=== PATIENT | female | born 1990 | race Caucasian/White ===

== ENCOUNTER 2017-02-21 21:45 | Inpatient (IN) | payer OTHER ==
[2017-02-21] MEDS ORDERED: ELECTROLYTE-148 SOLN 1,000 ML IV SCH (22:00)
[2017-02-21 22:30] LABS: BASOPHIL 0.3 % (0-2.0); EOSINOPHIL 0.3 % (0-4.5); MCH 29.9 pg (25.7-33.7); MCHC 34.4 g/dl (32.0-36.0); MEAN CELL VOLUME 87.1 fl (80-96); MEAN PLT VOLUME 7.7 fl (7.5-11.1); NEUTROPHILS 70.2 % (42.8-82.8); PLATELET COUNT 301 K/MM3 (134-434); RDW 14.8 % (11.6-15.6); WHITE BLOOD COUNT 9.1 K/mm3 (4.0-10.0)
[2017-02-21 22:43] LABS: INR 0.9 (0.82-1.09); PROTHROMBIN TIME (PATIENT) 9.9 SEC (9.98-11.88)
[2017-02-21 22:44] VITALS: BMI 27.9
[2017-02-21 22:46] LABS: ACTIVATED PTT 26.5 SECONDS (26.9-34.4)
[2017-02-21 23:03] LABS: ANION GAP 14 (8-16); CALCIUM 8.9 mg/dL (8.5-10.1); CO2 18 mmol/L (21-32); CREATININE 0.5 mg/dL (0.55-1.02); GLUCOSE,RANDOM 89 mg/dL (74-106)
--- NOTE | 2017-02-21 23:11 | HP ---
Past Medical History - Primary Care Physician PCP:: Asiya Lisa - Admission Chief Complaint: 26 yrs , 40.1 weeks admitted in labor, onset LP since 5.00 PM History of Present Illness: pnc at , [facility],late registrant . transferred care from [facility] at [facility] work Up : o Pos, Rpr nr, Hbsag neg, Rubella pos, Rpr nr, Quantiferon neg, Hiv neg , Hgb electrophoresis AA, , pap (NILM - 08/21/16 ) , gc/ct neg ,GCT 109, GBS neg CF neg. quad screen neg. 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 Weeks Gestation by Dates: 40.1 ...EDC by Dates: 02/19/17 ...EDC by Sono: 02/19/17 Heme/Onc: No: Anemia Infectious Disease: Yes: Other (h/o HSV genitalis). No: AIDS, HIV, Tuberculosis Endocrine: No: Diabetes Mellitus, Hypothyroidism - Past Surgical History Past Surgical History: Yes: None Hx Myomectomy: No Hx Transabdominal Cerclage: No - Smoking History Smoking history: Never smoked Have you smoked in the past 12 months: No - Alcohol/Substance Use Hx Alcohol Use: No History of Substance Use: reports: None Home Medications - Allergies Allergies/Adverse Reactions: Allergies Allergy/AdvReac Type Severity Reaction Status Date / Time No Known Allergies Allergy Verified 02/21/17 22:24 - Home Medications Home Medications: Ambulatory Orders Ferrous Sulfate 325 mg PO DAILY 02/21/17 Vitamins (Sjr) - 1 tab PO DAILY 02/21/17 Valacyclovir HCl [Valtrex -] 500 mg PO DAILY 02/21/17 Physical Exam - Maternity Vital Signs: Vital Signs Temperature 98.6 F 02/21/17 22:35 Pulse Rate 80 02/21/17 22:35 Respiratory Rate 20 02/21/17 22:35 Blood Pressure 124/79 02/21/17 22:35 O2 Sat by Pulse Oximetry (%) Constitutional: Yes: Well Nourished, Severe Distress Eyes: Yes: WNL HENT: Yes: WNL, Normocephalic Neck: Yes: WNL, Supple Cardiovascular: Yes: WNL, Regular Rate and Rhythm Lungs: Clear to auscultation Breast(s): Yes: Other (nt examined) - Abdominal Exam/OB Fundal Height: 40 Number of Fetuses: Single Presentation: Vertex (exam at 22.50 hr) Contractions: Yes Regularity: Regular (2-3 min) Intensity: Strong Monitor Mode: External Heart Rate (range): 140-150 Heart Rate Location: [facility] Category: I Accelerations: Uniform Decelerations: None - Vaginal Exam/OB Vaginal Bleediing: Bloody Show Dilatation (cm): 7 Effacement (%): 80 Amniotic Membrane Status: Intact Presentation: Vertex/Position Station: -2 - Physical Exam Musculoskeletal: Yes: WNL Extremities: Yes: WNL. No: Calf Tenderness Edema: Yes Edema: LLE: 1+, RLE: 1+ ...Motor Strength: WNL Psychiatric: Yes: WNL, Alert, Oriented - Labs Lab Results: CBC, BMP 02/21/17 22:15 Laboratory Tests 02/21/17 02/21/17 22:15 22:15 INR 0.90 PTT (Actin FS) 26.5 L Sodium 138 Potassium 3.7 Chloride 106 Carbon Dioxide 18 L BUN 12 Creatinine 0.5 L Random Glucose 89 Calcium 8.9 Problem List - Problems (1) 40 weeks gestation of Code(s): Z3A.40 - 40 WEEKS GESTATION OF (2) Labor established Code(s): JSM6134 - Assessment/Plan 26 yrs , 40.1 weeks , in active labor,GBS neg , h/o po valtrex for prophylaxis of herpes infection plan : epidural labor analgesia trial vaginal delivery
[2017-02-21] MEDS ORDERED: FENTANYL/BUPIVACAINE/NS/PF - PCEA - 50 ML DISP.SYRIN EP SCH (23:45)
--- NOTE | 2017-02-22 00:25 | PN ---
Progress Note, Labor Vaginal Exam #1 Labor Exam Date: 02/22/17 Labor Exam Time: 00:15 Heart Rate (range): 130-140 Dilatation: 9 Effacement (%): 100 Amniotic Membrane Status: Ruptured (AROM clear) Presentation: Vertex/Position Station: 0 Remarks: UC 2-3 min FHR cat-1 epidural given at 11.30 PM 02/21/17 Selected Entries 02/21/17 02/21/17 02/22/17 23:05 23:30 00:00 Temperature 98.4 F 98.3 F Pulse Rate 75 110 H Blood Pressure 135/66 125/60 Blood Pressure 81 Mean Vaginal Exam #2 Labor Exam Date: 02/22/17 Labor Exam Time: 00:45 Heart Rate (range): 145 Dilatation: 10 Effacement (%): 100 Amniotic Membrane Status: Ruptured Presentation: Vertex/Position Station: +2 Remarks: fhr cat-1 UC q2 min pt was encouraged to push at 1.00am
[2017-02-22] MEDS: D5W-LR W/ 20 UNITS OXYTOCIN 1,000 ML IV SCH (01:38)
[2017-02-22] MEDS ORDERED: WITCH HAZEL 50% (TUCKS) 40 PAD/JAR PAD TP PRN (01:55)
[2017-02-22] MEDS ORDERED: BENZOCAINE 20% 57 GM BOTTLE TP PRN (01:55)
[2017-02-22] MEDS ORDERED: BENZOCAINE 28 GM HEMORRHOIDAL OINTMENT TP PRN (01:55)
[2017-02-22] MEDS ORDERED: METHYLERGONOVINE MALEATE 0.2 MG/1 ML AMP IM PRN (01:55)
[2017-02-22] MEDS ORDERED: oxyCODONE HCL 5 MG TABLET PO PRN (01:55)
[2017-02-22] MEDS ORDERED: BISACODYL 10 MG SUPP.RECT RC PRN (01:55)
--- NOTE | 2017-02-22 02:12 | PN ---
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 [facility] in [place], late transferred to [facility] Gbs neg Intrapartum course uneventful
[2017-02-22 02:13] LABS: ARTERIAL BLD GAS O2 SATURATION 16.2 % (90-98.9); ARTERIAL BLOOD GAS BASE EXCESS -2.8 meq/l (-2-2); ARTERIAL BLOOD GAS HCO3 23.2 meq/L (22-26); ARTERIAL BLOOD GAS PO2 14.6 mmHg (80-100)
[2017-02-22 02:14] LABS: LPM/O2% 21%; PT. ON O2? NO; TYPE OF O2 ROOM AIR
[2017-02-22 02:17] LABS: ARTERIAL BLOOD GAS pH 7.32 (7.35-7.45)
[2017-02-22 02:19] LABS: VENOUS BLOOD GAS HCO3 21.9 meq/L (19-25)
[2017-02-22 02:20] LABS: VENOUS PH 7.42 (7.32-7.42)
[2017-02-22] MEDS: IBUPROFEN 600 MG TABLET (FP) PO PRN ×2 (07:22→20:53)
[2017-02-22] MEDS: ACETAMINOPHEN 325 MG TABLET (FP) PO PRN ×2 (07:23→20:53)
[2017-02-22] MEDS: FERROUS SO4 325 MG TABLET (FP) PO SCH ×2 (08:00→17:18)
[2017-02-22] MEDS: PRENATAL VITAMINS W/ FOLIC ACID TABLET (FP) PO SCH (09:26)
[2017-02-23 06:50] LABS: BASOPHIL 0.5 % (0-2.0); EOSINOPHIL 1.8 % (0-4.5); MCH 29.5 pg (25.7-33.7); MCHC 33.6 g/dl (32.0-36.0); MEAN PLT VOLUME 7.3 fl (7.5-11.1); PLATELET COUNT 239 K/MM3 (134-434); WHITE BLOOD COUNT 7.8 K/mm3 (4.0-10.0)
[2017-02-23] MEDS: FERROUS SO4 325 MG TABLET (FP) PO SCH ×2 (09:17→17:11)
[2017-02-23] MEDS: PRENATAL VITAMINS W/ FOLIC ACID TABLET (FP) PO SCH (09:17)
[2017-02-23] MEDS: ACETAMINOPHEN 325 MG TABLET (FP) PO PRN ×2 (09:19→23:28)
[2017-02-23] MEDS: IBUPROFEN 600 MG TABLET (FP) PO PRN ×2 (09:20→23:27)
--- NOTE | 2017-02-23 09:31 | PN ---
Post Progress Note - Subjective Subjective: 26 yo Para 2, status post vaginal delivery, seen and evaluated. Doing well, no complaints. Post Day: 1 Type of Delivery: Vital Signs: Vital Signs Temperature 98.6 F 02/23/17 02:00 Pulse Rate 65 02/23/17 02:00 Respiratory Rate 18 02/23/17 02:00 Blood Pressure 104/70 02/23/17 02:00 O2 Sat by Pulse Oximetry (%) 100 02/22/17 02:45 Breast Exam: Yes: Soft Uterus: Yes: Fundus Firm Abdomen/GI: Yes: Abdomen soft, Tolerating PO Lochia: Yes: Rubra Lochia, amount: Moderate Extremities: Yes: Calves non-tender Perineum: Yes: Intact Activity: Ambulating - Labs Labs: CBC WBC 7.8 K/mm3 (4.0-10.0) 02/23/17 06:30 RBC 3.85 M/mm3 (3.60-5.2) 02/23/17 06:30 Hgb 11.4 GM/dL (10.7-15.3) D 02/23/17 06:30 Hct 33.8 % (32.4-45.2) 02/23/17 06:30 MCV 88.0 fl (80-96) 02/23/17 06:30 MCH 29.5 pg (25.7-33.7) 02/23/17 06:30 MCHC 33.6 g/dl (32.0-36.0) 02/23/17 06:30 RDW 15.0 % (11.6-15.6) 02/23/17 06:30 Plt Count 239 K/MM3 (134-434) D 02/23/17 06:30 MPV 7.3 fl (7.5-11.1) L 02/23/17 06:30 Neutrophils % 65.0 % (42.8-82.8) 02/23/17 06:30 Lymphocytes % 26.9 % (8-40) 02/23/17 06:30 Monocytes % 5.8 % (3.8-10.2) 02/23/17 06:30 Eosinophils % 1.8 % (0-4.5) D 02/23/17 06:30 Basophils % 0.5 % (0-2.0) 02/23/17 06:30 Assessment/Plan Status post vaginal delivery Stable Continue routine care
[2017-02-23] MEDS ORDERED: SENNOSIDES/DOCUSATE COMBO (SENNA PLUS) TABLET (UD) PO PRN (22:00)
[2017-02-24] MEDS: ACETAMINOPHEN 325 MG TABLET (FP) PO PRN ×2 (05:22→09:18)
[2017-02-24] MEDS: IBUPROFEN 600 MG TABLET (FP) PO PRN ×2 (05:23→09:17)
[2017-02-24] MEDS: FERROUS SO4 325 MG TABLET (FP) PO SCH (08:00)
--- NOTE | 2017-02-24 08:48 | PN ---
Progress Note (short form) - Note Progress Note: ppd 2 doing wel, no c/o ,voids ok CBC, BMP 02/23/17 06:30 02/21/17 22:15 Last Vital Signs Temp Pulse Resp BP Pulse Ox 98.4 F 79 18 125/79 100 02/23/17 22:00 02/23/17 22:00 02/23/17 22:00 02/23/17 22:00 02/22/17 02:45 abdomen soft, uterus firm, non tender, no cva lochia mild no calf tenderness plan ambulate , d/c home, rtc 4 weeks
[2017-02-24] MEDS: PRENATAL VITAMINS W/ FOLIC ACID TABLET (FP) PO SCH (09:15)
[2017-02-24 09:26] VITALS: BP 110/79; PULSE 74; TEMP 98.3
[2017-02-24] MEDS: D5W-LR W/ 20 UNITS OXYTOCIN 1,000 ML IV SCH (10:00)
--- NOTE | 2017-02-24 10:40 | DS ---
Physical Exam-CLIENT RELATIONS SPECIALIST Vital Signs: Vital Signs Temperature 98.3 F 02/24/17 09:25 Pulse Rate 74 02/24/17 09:25 Respiratory Rate 20 02/24/17 09:25 Blood Pressure 110/79 02/24/17 09:25 O2 Sat by Pulse Oximetry (%) 100 02/22/17 02:45 Constitutional: Yes: Well Nourished Eyes: Yes: WNL HENT: Yes: WNL, Normocephalic Neck: Yes: WNL Cardiovascular: Yes: WNL Respiratory: Yes: WNL Gastrointestinal: Yes: WNL, Normal Bowel Sounds ...Rectal Exam: Yes: WNL ....Post : Yes: Uterus firm, Uterus non-tender, Moderate lochia rubra ( perineum intact) Breast(s): Yes: WNL (BF , not engorged) Musculoskeletal: Yes: WNL Extremities: Yes: WNL. No: Calf Tenderness Edema: Yes Edema: LLE: Trace, RLE: Trace Integumentary: Yes: WNL Neurological: Yes: WNL ...Motor Strength: WNL Psychiatric: Yes: WNL, Alert, Oriented Labs: CBC, BMP 02/23/17 06:30 02/21/17 22:15 Delivery - Delivery Vaginal Delivery: No Problems, Spontaneous (cord around neck x2 , wqs released before delivery of ant shoulder) Type of Anesthesia: Epidural Episiotomy/Laceration: None EBL (cc): 300 Delivery, Single - Stages of Labor Date 1st Stage Initiatied: 02/21/17 Time 1st Stage Initiated: 17:00 Date 2nd Stage Initiated: 02/22/17 Time 2nd Stage Initiated: 00:45 Date of Delivery: 02/22/17 Time of Delivery: 01:33 Time Placenta Delivered: 01:38 Placenta: Yes: Spontaneous, Uterine Exploration - Condition of Infant Locket Maker/Spindle Sander Present: No Gender: Male Weight: 8 lb 11 oz Position: OA Total Hours ROM (Hrs/Mins): 1hr 23 min - 1 Minute Total Score: 9 5 Minutes Total Score: 9 - Feeding Plan Initial Plan: Exclusive throughout hospitalization Remarks - Remarks Remarks: 26 yrs 40.1/7 weeks admitted in labor . [facility] in [place], [facility] Gbs neg Intrapartum course uneventful . post course uneventful discharge 02/24/17 Discharge Summary Reason For Visit: ADMIT LABOR Current Active Problems 40 weeks gestation of (Acute) Labor established (Acute) Status post normal vaginal delivery (Acute) Condition: Stable - Instructions Diet, Activity, Other Instructions: Post Instructions DIET: Continue good diet high in protein, calcium, and iron rich foods. Drink at least eight (8) glasses of water daily in addition to other fluids. ___ Regular diet MEDICATIONS: Continue vitamins and iron as previously directed. Motrin and Tylenol may be taken for minor discomfort. ACTIVITY: Mild to moderate exercise may be started in two (2) weeks. Take frequent rest periods. Resume normal activity after six (6) week check up. WOUND CARE OF OPERATIVE SITE: Continue use of perineal bottle until vaginal discharge stops. Keep area clean. Shower daily. Keep abdominal wound dry. Report any drainage or redness to physician. Tub baths, tampons and douches are not permitted for 6 weeks. ____ Breast feeding ___ Bottle feeding BREAST CARE: (For those that are not ): If engorgement occurs: Wear tight fitting bra. Take Tylenol or Motrin for pain. Apply cold packs (ice in bags to each breast ) FAMILY PLANNING: There are many control alternatives to pursue and they should be discussed at your first office visit. You may resume sexual activity after your six (6) week check up. (Remember, is not a contraceptive) NEXT PHYSICIAN APPOINTMENT: Be certain to call for a six (6) week appointment, unless otherwise directed. Call Clinic or got to Emergency Dept if you have any of the following: Heavy vaginal bleeding Painful urination Leg pain Unusual odor noted to vaginal bleeding High fever Red streaking noted on breast Referrals: Asiya Lisa MD [Staff Physician] - Disposition: HOME - Home Medications Comprehensive Discharge Medication List: Ambulatory Orders Ferrous Sulfate 325 mg PO DAILY 02/21/17 Vitamins (Sjr) - 1 tab PO DAILY 02/21/17 Valacyclovir HCl [Valtrex -] 500 mg PO DAILY 02/21/17 Acetaminophen [Tylenol .Regular Strength -] 650 mg PO Q3H PRN #0 tablet Ibuprofen [Motrin -] 200 mg PO Q4H PRN #0 tablet 02/23/17 Vitamins (Sjr) - 1 tab PO DAILY tablet 02/23/17
== END 2017-02-24 12:15 | disposition home or self-care (01) | DRG 560 ==
LOC: JDEL 21:45 → JLDR 22:00 → J3W 02-22 04:15
PROVIDERS: ADMIT Obstetrics & Gynecology; ATTEND Obstetrics & Gynecology
PROC: 10907ZC Drainage of Amniotic Fluid, Therapeutic from Products of Conception, Via Natural or Artificial Opening (ICD-10-PCS; principal; 2017-02-22)
PROC: 10E0XZZ Delivery of Products of Conception, External Approach (ICD-10-PCS; 2017-02-22)
DX: O48.0 Post-term pregnancy (principal); Z3A.40 40 weeks gestation of pregnancy; O69.81X0 Labor and delivery complicated by cord around neck, without compression, not applicable or unspecified; Z37.0 Single live birth
CPT/HCPCS: 36415; 36600; 59409; 80048; 82803; 85025; 85610; 85730; 86593; 86850; 86900; 86901